=== PATIENT | female | born 1970 | race Caucasian/White ===

== ENCOUNTER 2018-11-27 18:26 | Emergency (ER) | payer OTHER ==
[2018-11-27 18:29] VITALS: TEMP 98.6; BMI 34.2
--- NOTE | 2018-11-27 19:22 | PDOC ---
History of Present Illness - General Chief Complaint: Headache Stated Complaint: HEADACHE Time Seen by Provider: 11/27/18 18:53 - History of Present Illness Initial Comments: Nerissa Garcia is a 48yo woman with no known medical problems who presents with left occipital RUIZ and left neck and shoulder pain for the past 8 days. She reports that she has had similar pain over the past few months, but this time she is unable to resolve the pain with home medications. The headaches usually start in the aftenoon or evening. In the current episode, the pain started last week Wednesday as a dull pain in the left posterior head. Over the week, it increased to 7/10 and spread down to the left neck and left upper back/ shoulder. She tried taking two tablets of acetaminophen and then iburpofen. She has taken a total of 4 doses. She also tried applying IcyHot cream to her neck. None of the medications significantly helped her pain. She does not have any associated photophobia, phonophobia, nausea/vomiting, fever, neck stiffness, or focal weakness. She does state that today her left face feels a little numb over the entire face, which she has not experienced with the headaches before. Her daughter called the PMD earlier in the week but was told they could not get an appointment for a month. She decided to come to the ED today because of the facial numbness and because she could not sleep last night. NIH Stroke Scale - Last Known Well Date/Time & Onset Date Last Known Well: 11/26/18 - Initial Evaluation Level of consciousness: Alert Ask patient the month and their age: Answers both correctly Ask patient to open & close eyes; make fist and let go: Obeys both correctly Best gaze (horizontal eye movement): Normal Visual field testing: No visual field loss Facial paresis (Show teeth/raise eyebrows/close eyes tight): Normal symmetrical movement Motor Function: Left Arm: Normal Motor Function: Right Arm: Normal (extends arm 90 (or 45) degrees for 10 seconds without drift Motor Function: Left Leg: Normal (extends leg 30 degrees for 5 seconds without drift) Motor Function: Right Leg: Normal (extends leg 30 degrees for 5 seconds without drift) Limb Ataxia: No ataxia Sensory(Use pinprick test arms,legs,trunk,face/side to side): Mild to moderate decrease in sensation (Subjective numbness over L face (feels different)) Best language (Describe picture, name items, read sentences): No Aphasia Dysarthria (read several words): Normal articulation Extinction and Inattention: No abnormality - Total Score NIH Stroke Scale Score: 1 Past History - Past Medical History Allergies/Adverse Reactions: Allergies Allergy/AdvReac Type Severity Reaction Status Date / Time No Known Allergies Allergy Verified 11/27/18 18:29 Home Medications: Ambulatory Orders Methocarbamol [Robaxin -] 500 mg PO TID PRN #21 tablet 11/27/18 COPD: No - Immunization History Immunization Up to Date: Yes - Suicide/Smoking/Psychosocial Hx Smoking History: Never smoked Have you smoked in the past 12 months: No Hx Alcohol Use: No Drug/Substance Use Hx: No Substance Use Type: None Review of Systems - Review of Systems Comments:: General: No fevers, no chills, no weight or appetite change, no malaise HEENT: No changes in vision, no changes in hearing, no congestion, no sore throat. See HPI CV: No chest pain, no palpitations, no LE edema Pulm: No SOB, no cough, no wheezing GI: No nausea or vomiting, no change in bowel habits, no melena : No frequency, no urgency, no dysuria Musc: No back pain, no joint swelling, no recent injury Skin: No rash, no lesions, no erythema Endo: No excessive thirst, no heat/cold intolerance Heme: No unusual bruising or bleeding, no swollen glands Neuro: No syncope, no numbness/tingling, no focal weakness Vasc: No claudication Psych: No recent change in mood, no SI or HI *Physical Exam - Vital Signs Last Vital Signs Temp Pulse Resp BP Pulse Ox 98.6 F 82 18 120/64 96 11/27/18 18:27 11/27/18 18:27 11/27/18 18:27 11/27/18 18:27 11/27/18 18:27 - Physical Exam Comments: General: Comfortable, no acute distress HEENT: PERRL, EOMI, MMM, voice normal, normal neck ROM, no LAD. TTP over left neck muscles. Tenderness when tapping left occipital head. Cards: RRR, no murmur appreciated Pulm: Comfortable on room air, clear to auscultation bilaterally Abd: Soft, nontender, nondistended : No CVA tenderness Ext: Atraumatic. No LE edema. ROM intact. Strength 5/5 and equal bilaterally Vasc: Extremities WWP Skin: Normal color, no rashes or lesions Neuro: A&Ox3, CN 2-4, 6-12 grossly intact. Diminished sensation to light touch over entire left face (w/ normal motor). Normal speech, motor/sensory grossly intact and symmetric over extremities. No focal deficits. Psych: Mood appropriate to situation ED Treatment Course - LABORATORY CBC & Chemistry Diagram: 11/27/18 20:00 11/27/18 20:50 Medical Decision Making - Medical Decision Making 11/27/18 19:18 Nerissa Garcia is a 48yo woman with no known medical problems who presents with left occipital RUIZ and left neck and shoulder pain for the past 8 days. She denies any associated symptoms including neck stiffness, fever, or focal neurological symptoms until she started to have left facial numbness today. - Most likely musculoskeletal as she has TTP over left neck muscles and left occipital head. May also be tension headache, less likely migraine. No fever, neck stiffness suggesting meningitis. Unlikely to be intracranial bleed as she has had intermittent symptoms over several months and current episode has lasted 8 days. However, cannot rule out as she reports new left-sided facial weakness. - CT head - CBC, CMP, tsh - IVF, IV acetaminophen, reglan, benadryl 11/27/18 21:12 - Chemistry hemolized. Resent - Pt with some anxiety, shaking. Appears to be mild dystonic reaction 2/2 reglan. Will monitor. Fell asleep during exam (also given diphehydramine. May have received reglan first) 11/27/18 21:55 - Labs reviewed. Unremarkable. - CT c-spine ordered by Dr Zayas. Pt now reports L arm tingling as well 11/27/18 22:53 - CT completed. Reviewed in ED. No abnormalities appreciated. Radiology report pending. - Reassessed Ms Garcia, now feels well. Likely d/c home with PMD follow up if CT read is negative 11/27/18 23:55 - CT head negative - CT c-spine read pending - Discussed home care, follow up, and return precautions at length with Ms Garcia and her daughter. - Pt to be d/c'd by Dr Zayas when CT c-spine read is completed. Seen with Dr Zayas. Roberta Larson PGY1 *DC/Admit/Observation/Transfer Diagnosis at time of Disposition: Headache Qualifiers: Headache type: unspecified Headache chronicity pattern: unspecified pattern Intractability: not intractable Qualified Code(s): R51 - Headache Trapezius strain Qualifiers: Encounter type: initial encounter Laterality: left Qualified Code(s): S46.812A - Strain of other muscles, fascia and tendons at shoulder and upper arm level, left arm, initial encounter - Referrals Referrals: Natalie Brown MD [Primary Care Provider] - - Patient Instructions Printed Discharge Instructions: DI for Musculoskeletal Pain Additional Instructions: Discharge Instructions: You were seen in the emergency department for headache, neck pain, and back pain. You had blood tests and a CT scan. There were no concerning abnormalities. Your pain is most likely from pain in the trapezius muscle that covers the back of your neck, upper back, and back of the head. Home Care and Follow Up: - You may use over the counter medications as needed for pain at home. 650- 1000mg acetaminophen (Tylenol) or 600mg ibuprofen (Motrin or Advil) can be used every 6-8 hours. If needed for continued pain, these medications may be alternated every 3-4 hours. For example, if you take ibuprofen at 9am, you may take acetaminophen at noon, ibuprofen at 3pm, etc. It is strongly recommended that you take ibuprofen with food to help prevent stomach irritation. - You may buy a numbing patch that contains lidocaine (the patch is 4% lidocaine ) that can be placed over the areas of greatest pain. The lidocaine patch may be placed for 12 hours then removed for 12 hours. - Try using an ice pack for 20 minutes every hour or a heating pad for additional pain control. These should NOT be used over the lidocaine patch, but you may place them over the areas of pain while the patch is off. - Do not stop moving around. As much as you can tolerate, continue to do light exercise and stretching exercises. Increase your activity level as much as you can tolerate daily. - Please see your regular doctor within the next 1-2 weeks for follow up. - Seek immediate medical care if you have significant worsening of your symptoms , you have neurological symptoms such as one-sided weakness or changes in speech , you are difficult to wake or confused, you have fever to 101F or higher, or you have any other medical emergency. Instrucciones de descarga: Fue atendido en el departamento de emergencias por dolor de trev, dolor de mike y dolor de espalda. Le hicieron anlisis de melody y ramon tomografa computarizada. No hubo anormalidades preocupantes. Lu dolor es ms probable debido al dolor en el msculo trapecio que cubre la parte posterior de lu mike, parte superior de la espalda y parte posterior de la trev. Atencin domiciliaria y seguimiento: - Puede usar medicamentos de venta antonio segn sea necesario para el dolor en el hogar. Se pueden usar 650-1000 mg de paracetamol (Tylenol) o 600 mg de ibuprofeno (Motrin o Advil) cada 6-8 horas. Si es necesario para el dolor continuo, estos medicamentos pueden alternarse cada 3-4 horas. Por ejemplo, si tavia ibuprofeno a las 9 am, puede anna acetaminofeno al medioda, ibuprofeno a las 3 pm, etc. Se recomienda encarecidamente que tome ibuprofeno con alimentos para ayudar a prevenir la irritacin estomacal. - Puede comprar un parche para adormecer que contiene lidocana (el parche es 4 % de lidocana) que se puede colocar sobre las reas de mayor dolor. El parche de lidocana puede colocarse chantale 12 horas y luego retirarse chantale 12 horas. - Intente usar ramon bolsa de hielo chantale 20 minutos cada hora o ramon almohadilla trmica para controlar el dolor adicional. NO se deben usar sobre el parche de lidocana, ju puede colocarlos sobre las reas del dolor mientras el parche est apagado. - No dejes de moverte. Por mucho que pueda tolerar, contine haciendo ejercicios ligeros y ejercicios de estiramiento. Aumente lu nivel de actividad tanto lj pueda tolerar diariamente. - Consulte a lu mdico de cabecera dentro de las prximas 1 a 2 semanas para realizar un seguimiento. - Busque atencin mdica inmediata si tiene un empeoramiento significativo de olivier sntomas, si tiene sntomas neurolgicos lj debilidad unilateral o cambios en el habla, es difcil despertarse o est confundido, tiene fiebre a 101F o ms, o si tiene cualquier otro Emergencia mdica. - Post Discharge Activity
[2018-11-27] MEDS ORDERED: ACETAMINOPHEN 1000 MG/100 ML VIAL (NON FORMULARY) IVPB ONE (19:23)
[2018-11-27] MEDS ORDERED: METOCLOPRAMIDE HCL INJECTION 10 MG/2 ML VIAL IVPUSH ONE (19:23)
[2018-11-27] MEDS ORDERED: SODIUM CHLORIDE 0.9% 500 ML INFUS.BAG IV ONE (19:23)
[2018-11-27] MEDS ORDERED: METOCLOPRAMIDE HCL INJECTION 10 MG/2 ML VIAL ONE (19:30)
[2018-11-27] MEDS ORDERED: ACETAMINOPHEN INJECTION 100 ML IVPB ONE (19:30)
[2018-11-27 20:12] LABS: BASO % 1.7 % (0-2.0); EOS % 3.3 % (0-4.5); HEMATOCRIT 37.8 % (32.4-45.2); HEMOGLOBIN 12.8 GM/dL (10.7-15.3); MCH 29.9 pg (25.7-33.7); MEAN CELL VOLUME 87.8 fl (80-96); MEAN PLT VOLUME 9.1 fl (7.5-11.1); MONO % 9.3 % (3.8-10.2); NEUT % 44.7 % (42.8-82.8); PLATELET COUNT 282 K/MM3 (134-434); RDW 13.2 % (11.6-15.6); WHITE BLOOD COUNT 7.9 K/mm3 (4.0-10.0)
--- NOTE | 2018-11-27 20:41 | PDOC ---
Attending Attestation - HPI HPI: 11/27/18 20:43 The patient is a 48 year old female with no significant PMH who presents to the emergency department with a left occipital headache & associated left shoulder and neck pain beginning approximately 8 days ago. She describes her headache as a gradual, dull, occipital pain that radiates down her left neck into her shoulder, which is aggravated by turning her head. She notes taking Tylenol & Advil to no relief. The patient states she has had similar symptoms intermittently in the past 2 months, but this episode she is unable to resolve her pain with medications and had trouble sleeping last night. The patient notes associated left face & arm numbness, and bilateral lower extremity weakness when her headaches worsen. The patient denies any photophobia or phonophobia. She denies nausea or vomiting. The patient denies chest pain, shortness of breath, and dizziness. Denies fever, chills, diarrhea and constipation. Denies dysuria, frequency, urgency and hematuria. Allergies: NKA Past surgical history: . Fibroid removal. Social history: No reported cigarette, alcohol, or drug use. PCP: Dr. Brown - Physicial Exam PE: 11/27/18 20:43 GENERAL: Awake, alert, and fully oriented, in no acute distress HEAD: No signs of trauma EYES: PERRLA, EOMI, sclera anicteric, conjunctiva clear ENT: Auricles normal inspection, hearing grossly normal, nares patent, oropharynx clear without exudates. Moist mucosa NECK: Normal ROM, supple, no lymphadenopathy, JVD, or masses LUNGS: Breath sounds equal, clear to auscultation bilaterally. No wheezes, and no crackles HEART: Regular rate and rhythm, normal S1 and S2, no murmurs, rubs or gallops ABDOMEN: Soft, nontender, normoactive bowel sounds. No guarding, no rebound. No masses EXTREMITIES: (+) Left trapezius tenderness. Normal range of motion, no edema. No clubbing or cyanosis. No cords or erythema. NEUROLOGICAL: (+) Left facial numbness.Cranial nerves II through XII grossly intact. Normal speech, normal gait SKIN: Warm, Dry, normal turgor, no rashes or lesions noted. - Medical Decision Making 11/27/18 20:43 Part of this documentation prepared by Mason Bronson, acting as back office medical assistant for Mckenna Zayas MD. <AudieMason - Last Filed: 11/27/18 20:43> - Resident Resident Name: Roberta Larson - ED Attending Attestation I have performed the following: I have examined & evaluated the patient, The case was reviewed & discussed with the resident, I agree w/resident's findings & plan - Medical Decision Making 11/27/18 21:51 All labs are normal; CT scanner is backed up. We are awaiting her CT scans. IF normal, she will be discharged. Pt is resting comfortably and feeling better. 11/28/18 01:13 Patient Name: JAYY JEFFERY THIS IS A PRELIMINARY REPORT FROM [facility] EX[facility]: CT Cervical spine wo: IMAGES: [id number] EXAM DATE AND TIME: 2018-11-27 22:38:02 REASON FOR EXAM: 48 year old woman: Left arm numbness. COMPARISON: None TECHNIQUE: Thin cut axial images were obtained and sagittal and coronal reformatted images generated. FINDINGS: There are no cervical spine fractures or dislocations. There is no evidence of prevertebral soft tissue swelling. Bone mineralization appears normal. The craniocervical junction appears normal. The vertebral body heights and alignments are well-maintained. There is a straightening of the cervical spine. The apophyseal joints appear normal. Intervertebral disk heights are preserved at all levels, without evidence of disk herniation into the spinal canal. The spinal canal and neural foramina are patent at all levels. There is no evidence of spinal cord compression or nerve root compromise. There are no dominant masses or evidence of adenopathy in the imaged soft tissues of the neck. The thyroid glands are normal in size and contour. The thoracic inlet and lung apices are unremarkable. Vascular structures appear grossly normal. IMPRESSION: Normal CT of the cervical spine. No evidence of fracture 11/28/18 02:46 Patient Name: JAYY JEFFERY THIS IS A PRELIMINARY REPORT FROM [facility]: CT Head wo IMAGES: 144 EXAM DATE AND TIME: 2018-11-27 22:40:47 HISTORY: 48 year old woman: Headache. COMPARISON: None TECHNIQUE: Non-contrast axial images were obtained. Coronal and sagittal images were also generated. FINDINGS: The cerebral sulci and ventricles are normal in size. There are no intracranial hemorrhages, extra-axial fluid collections or evidence of an intra-axial mass lesion. There is no evidence of an acute or chronic ischemic lesion at this time. Orbital and petrous structures, cerebellopontine angles, and posterior fossa appear unremarkable. The paranasal and mastoid sinuses are clear. IMPRESSION: Normal CT scan of the head. No intracranial hemorrhages, extra- axial fluid collections or intra-axial mass lesion. <Mckenna Zayas - Last Filed: 11/28/18 02:46>
--- NOTE | 2018-11-27 20:41 | PDOC ---
History of Present Illness - General Chief Complaint: Headache Stated Complaint: HEADACHE Time Seen by Provider: 11/27/18 18:53 Past History - Past Medical History Allergies/Adverse Reactions: Allergies Allergy/AdvReac Type Severity Reaction Status Date / Time No Known Allergies Allergy Verified 11/27/18 18:29 Home Medications: Ambulatory Orders NK [No Known Home Medication] 07/12/15 COPD: No - Immunization History Immunization Up to Date: Yes - Suicide/Smoking/Psychosocial Hx Smoking History: Never smoked Have you smoked in the past 12 months: No Hx Alcohol Use: No Drug/Substance Use Hx: No Substance Use Type: None *Physical Exam - Vital Signs Last Vital Signs Temp Pulse Resp BP Pulse Ox 98.6 F 82 18 120/64 96 11/27/18 18:27 11/27/18 18:27 11/27/18 18:27 11/27/18 18:27 11/27/18 18:27 ED Treatment Course - LABORATORY CBC & Chemistry Diagram: 11/27/18 20:00 11/27/18 20:00 - ADDITIONAL ORDERS Additional order review: Laboratory Results 11/27/18 20:00 Sodium Cancelled Potassium Cancelled Chloride Cancelled Carbon Dioxide Cancelled Anion Gap Cancelled BUN Cancelled Creatinine Cancelled Est GFR (CKD-EPI)AfAm Cancelled Est GFR (CKD-EPI)NonAf Cancelled Random Glucose Cancelled Calcium Cancelled Total Bilirubin Cancelled AST Cancelled ALT Cancelled Alkaline Phosphatase Cancelled Total Protein Cancelled Albumin Cancelled 11/27/18 20:00 RBC 4.30 MCV 87.8 MCHC 34.0 RDW 13.2 MPV 9.1 Neutrophils % 44.7 Lymphocytes % 41.0 H Monocytes % 9.3 Eosinophils % 3.3 D Basophils % 1.7 - RADIOLOGY Radiology Studies Ordered: Category Date Time Status CERVICAL SPINE CT W/O CONTR [CT] Stat CT Scan 11/27/18 20:04 Ordered - Medications Given in the ED: ED Medications Discontinued Medications Generic Name Dose Route Start Last Admin Trade Name Freq PRN Reason Stop Dose Admin Acetaminophen 1,000 mg 11/27/18 19:23 11/27/18 20:08 Ofirmev Injection - IVPB 11/27/18 19:24 1,000 mg ONCE ONE Administration Diphenhydramine HCl 50 mg 11/27/18 19:28 11/27/18 20:26 Benadryl Injection - IVPB 11/27/18 19:29 50 mg ONCE ONE Administration Metoclopramide HCl 10 mg 11/27/18 19:23 11/27/18 20:08 Reglan Injection - IVPUSH 11/27/18 19:24 10 mg ONCE ONE Administration Sodium Chloride 1,000 ml 11/27/18 19:23 11/27/18 20:07 Normal Saline - IV 11/27/18 19:24 1,000 ml ONCE ONE Administration *DC/Admit/Observation/Transfer - Referrals Referrals: Natalie Brown MD [Primary Care Provider] - - Patient Instructions - Post Discharge Activity
[2018-11-27 21:48] LABS: BILIRUBIN,TOTAL 0.3 mg/dL (0.2-1); BLOOD UREA NITROGEN 17.8 mg/dL (7-18); CALCIUM 8.3 mg/dL (8.5-10.1); CREATININE 0.7 mg/dL (0.55-1.3); TOT PROT 7.5 g/dl (6.4-8.2)
[2018-11-28 01:49] VITALS: BP 122/64; PULSE 78
== END 2018-11-28 01:51 | disposition home or self-care (01) ==
LOC: JER 18:26
PROC: 3E033GC Introduction of Other Therapeutic Substance into Peripheral Vein, Percutaneous Approach (ICD-10-PCS; principal; 2018-11-27)
PROC: 3E033GC Introduction of Other Therapeutic Substance into Peripheral Vein, Percutaneous Approach (ICD-10-PCS; 2018-11-27)
PROC: 3E0337Z Introduction of Electrolytic and Water Balance Substance into Peripheral Vein, Percutaneous Approach (ICD-10-PCS; 2018-11-27)
PROC: 3E033NZ Introduction of Analgesics, Hypnotics, Sedatives into Peripheral Vein, Percutaneous Approach (ICD-10-PCS; 2018-11-27)
DX: R51 Headache (principal); S46.812A Strain of other muscles, fascia and tendons at shoulder and upper arm level, left arm, initial encounter; X58.XXXA Exposure to other specified factors, initial encounter; Y93.89 Activity, other specified; Y92.89 Other specified places as the place of occurrence of the external cause
CPT/HCPCS: 36415; 70450-TC; 72125-TC; 80053; 84443; 85025; 96372; 96374; 96375; 99283-25; J0131

== ENCOUNTER 2023-03-17 02:49 | Emergency (ER) | payer OTHER ==
[2023-03-17 02:54] VITALS: BP 129/70; PULSE 74; RESP 19; TEMP 98.5; BMI 31.2
[2023-03-17] MEDS ORDERED: morphine CARPU-JECT 2 MG/1 ML DISP.SYRIN IVPUSH ONE (03:02)
[2023-03-17] MEDS ORDERED: SODIUM CHLORIDE 1,000 ML IV SCH (03:15)
[2023-03-17 03:48] LABS: HEMATOCRIT 36.6 % (32.4-45.2); HEMOGLOBIN 12.7 GM/dL (10.7-15.3); MCH 30.1 pg (25.7-33.7); MCHC 34.8 g/dl (32.0-36.0); MEAN CELL VOLUME 86.6 fl (80-96); MEAN PLT VOLUME 8.4 fl (7.5-11.1); PLATELET COUNT 284 10^3/uL (134-434); RBC 4.22 M/mm3 (3.60-5.2); RDW 13.1 % (11.6-15.6); WHITE BLOOD COUNT 8.6 K/mm3 (4.0-10.0)
[2023-03-17 03:51] LABS: EPI CELLS 2 /uL (0-25.1); HYALINE CASTS 0 /uL (0-3.1); PH,URINE 5.5 (5.0-8.0); URINE APPEARANCE CLEAR; URINE BACTERIA 6 /uL (0-1359); URINE BILIRUBIN NEGATIVE (NEGATIVE); URINE COLOR YELLOW; URINE GLUCOSE (UA) NEGATIVE (NEGATIVE); URINE KETONE NEGATIVE (NEGATIVE); URINE LEUK ESTERASE TRACE (NEGATIVE); URINE NITRITE NEGATIVE (NEGATIVE); URINE PROTEIN NEGATIVE (NEGATIVE); URINE RBC 5 /uL (0-23.9); URINE UROBILINOGEN 0.2 mg/dL (0.2-1.0); URINE WBC 19 /uL (0-25.8)
[2023-03-17 05:33] LABS: POTASSIUM 4.1 mmol/L (3.5-5.1)
[2023-03-17 05:35] LABS: ALBUMIN 3.7 g/dl (3.4-5.0); BLOOD UREA NITROGEN 15.5 mg/dL (7-18); CALCIUM 8.7 mg/dL (8.5-10.1); MAGNESIUM 1.9 mg/dL (1.8-2.4)
[2023-03-17 05:38] LABS: CREATININE 0.7 mg/dL (0.55-1.3)
[2023-03-17 05:41] LABS: BILIRUBIN,TOTAL 0.3 mg/dL (0.2-1)
== END 2023-03-17 09:13 | disposition home or self-care (01) ==
LOC: FER 02:49
DX: R10.31 Right lower quadrant pain (principal)
CPT/HCPCS: 36415; 74177-TC; 80053; 81003; 83690; 83735; 84100; 85027; 87086; 99285-25; Q9967